=== PATIENT | male | born 1985 | race African-American/Black ===

== ENCOUNTER 2017-12-20 01:27 | Emergency (ER) | payer OTHER ==
[~2017-12-20] VITALS: Ht 188 cm; Wt 85.7 kg
[2017-12-20 01:47] LABS: URINE BLOOD 3+ (Negative); URINE CLARITY CLOUDY; URINE COLOR RED; URINE GLUCOSE-RANDOM* NEGATIVE (Negative); URINE KETONES TRACE (Negative); URINE PROTEIN (DIPSTICK) 2+ (Negative); URINE SPECIFIC GRAVITY 1.025 (1.005-1.035)
[2017-12-20 01:57] LABS: ICTOTEST (BILI CONFIRMATORY) Negative (Negative); URINE BILIRUBIN NEGATIVE (Negative); URINE LEUKOCYTES-REFLEX 3+ (Negative); URINE NITRITE-REFLEX POSITIVE (Negative)
[2017-12-20 01:59] LABS: CASTS None Seen /LPF (None Seen); CRYSTALS None Seen /LPF (None Seen); MUCUS 0-3 Light strn/LPF (None Seen); SQUAMOUS None Seen /LPF (0-3); URINE RBC >20 Many /HPF (0-2); URINE WBC-REFLEX >25 Many /HPF (0-5)
[2017-12-20] MEDS ORDERED: KEFLEX500 M1 PO (02:24)
[2017-12-20 02:35] VITALS: BP 117/84
== END 2017-12-20 02:36 | disposition home or self-care (01) ==
LOC: ER 01:27
PROVIDERS: Emergency Medicine
DX: N39.0 Urinary tract infection, site not specified (principal)